=== PATIENT | male | born 1940 | race Caucasian/White ===

== ENCOUNTER 2018-05-26 09:17 | Inpatient (IN) ==
[2018-05-26] MEDS ORDERED: ONDANSETRON 4 MG/2 ML VIAL IV ONE (09:44)
[2018-05-26] MEDS ORDERED: PANTOPRAZOLE 40 MG VIAL IV ONE (09:44)
[2018-05-26] MEDS ORDERED: 0.9 % SODIUM CHLORIDE 1,000 ML IV ONE (09:44)
[2018-05-26] MEDS ORDERED: PANTOPRAZOLE 80 MG in 0.9 % SODIUM CHLORIDE 100 ML IV SCH ×2 (09:45→20:00)
--- NOTE | 2018-05-26 09:48 | Emergency Department Note ---
General Adult HPI - General Chief complaint: Bleeding Other Stated complaint: black stools Time Seen by Provider: 05/26/18 09:32 Source: patient Mode of arrival: ambulatory Limitations: no limitations - History of Present Illness HPI Narrative: 77-year-old male has had some health issues the last several months and comes in for black tarry stools. He is not having much pain perhaps 1-2 out of 10. Denies trouble breathing urinating or other acute illness. He does note that he feels generally weak. He is bleeding a little bit from wound incision site at the umbilicus where he just had a laparoscopic cholecystectomy last week. He is on Eliquis and aspirin Over the last several months he has had his left hip pinning for a femur fracture, a pulmonary embolus that he is had to be on Eliquis for, had to have stenting done in his left lower leg for arterial blockage by Dr. Angulo, and had to have an emergency gallbladder surgery. The gallbladder was done the most recently by Dr. Mancini at [facility]. He is at a rehabilitation facility where he noticed black tarry stools. He went in for wound care of a necrotic large wound to his left lower leg as an outpatient to Dr. Carvalho, precision farming specialist-he told them about his back tarry stools and the oozing from his umbilical wound and they sent him here for further workup and evaluation. I talked to Dr. Carvalho personally and he showed me pictures of the patient's wound site which are now bandaged. He is concerned about a GI bleed and possible sepsis-recommended that he go to the ER for further workup. He is willing to consult on the patient, and do further care on the patient's wounds if the patient is admitted. Incidentally noted Dr. Carvalho also showed me a skin cancer wound in his left buttock area as well. - Related Data Home Medications Medication Instructions Recorded Confirmed simvastatin 10 mg tablet 10 mg PO QPM 08/19/16 10/22/16 aspirin 81 mg tablet,delayed 81 mg PO QDAY 09/18/16 10/22/16 release buspirone 5 mg tablet 5 mg PO TID tab 09/21/16 05/26/18 clonidine HCl 0.1 mg tablet 0.1 mg PO PRN PRN tab 09/21/16 05/26/18 enalapril maleate 10 mg tablet 10 mg PO QDAY tab 09/21/16 10/22/16 Apixaban [Eliquis] 5 mg PO BID 05/26/18 05/26/18 Aspirin [Lite Coat Aspirin] 325 mg PO DAILY 05/26/18 05/26/18 Esomeprazole Magnesium [Nexium 20 mg PO DAILY 05/26/18 05/26/18 24Hr] Furosemide [Lasix] 20 mg PO DAILY 05/26/18 05/26/18 LORazepam [Ativan] 0.5 mg PO PRN PRN 05/26/18 05/26/18 Methocarbamol [Robaxin] 750 mg PO Q6 PRN 05/26/18 05/26/18 Potassium Chloride [K-Tab ER] 8 meq PO DAILY 05/26/18 05/26/18 Allergies Allergy/AdvReac Type Severity Reaction Status Date / Time alprazolam Allergy Unknown Verified 05/26/18 10:30 codeine Allergy Unknown Heartburn Verified 05/26/18 09:21 escitalopram Allergy Unknown Verified 05/26/18 10:30 morphine Allergy Unknown Verified 05/26/18 10:30 propranolol Allergy Unknown Verified 05/26/18 10:30 tramadol Allergy Unknown Verified 05/26/18 10:30 Review of Systems All systems ED: reviewed and negative except as stated. Past Medical History - Past Medical History Attestation: Yes: The following information was validated with the patient. 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 Normal cephalic atraumatic. Conjunctive are clear sclerae nonicteric, pupil equal round reactive to light and accommodation. No nasal discharge or congestion. Oropharynx is pink and moist. Posterior pharynx is clear. Neck is supple without lymphadenopathy thyromegaly or carotid bruit. Heart is regular rate and rhythm no murmurs appreciated. Lungs are clear to auscultation bilaterally without wheezes rales rhonchi or respiratory distress. Abdomen is soft nontender nondistended. He does have several wound sites from the laparoscopic ports which are sutured and Steri-Stripped. All of these look clean dry and intact except for the one inferior to the umbilicus which is a small amount of blood oozing/crusted. He does seem to have reasonable hemostasis here; no active bleeding but certainly with bleeding earlier today. I do not see any purulent discharge excessive erythema or edema; no sign of infection or inflammation. Wound site in his left lower leg is bandaged but is leaking small amount of serous fluid onto the bed. I did do a rectal exam which is Hemoccult positive. He has somewhat weak rectal tone. No hemorrhoids noted. Noted is a large acrochordon on his buttock. This is noninflamed bleeding. He can move around on the bed with minimal assistance but he is globally weak. Alert oriented able to give me a reasonable history Limitations: no limitations Course Vital Signs Temperature 97.5 F 05/26/18 09:18 Pulse Rate 96 H 05/26/18 09:18 Respiratory Rate 20 05/26/18 09:18 Blood Pressure 136/80 05/26/18 09:18 Pulse Oximetry (%) 99 05/26/18 09:18 Temperature 97.5 F 05/26/18 09:18 Pulse Rate 104 H 05/26/18 12:42 Respiratory Rate 31 H 05/26/18 12:42 Blood Pressure 115/60 05/26/18 12:32 Pulse Oximetry (%) 100 05/26/18 12:42 Medical Decision Making - Medical Records Medical records reviewed: Yes I reviewed the patient's medical records. - Lab Data Lab results reviewed: Yes I reviewed the patient's lab results. Result diagrams: 05/26/18 09:54 05/26/18 09:54 Lab Results 05/26/18 05/26/18 05/26/18 Range/Units 09:54 09:54 09:54 WBC 9.2 (4.5-11.0) K/mcL RBC 3.58 L (4.50-5.90) M/mcL Hgb 10.7 L (13.5-16.5) g/dL Hct 33.5 L (41.0-55.0) % POC Hct 33.0 L (41.0-55.0) % MCV 93.5 (80.0-100.0) fL MCH 29.8 (26.0-34.0) pg MCHC 31.9 (31.0-36.0) g/dL RDW 17.4 H (11.5-14.5) % Plt Count 482 H (140-440) K/mcL MPV 7.7 (7.4-10.4) fL Gran % 71.1 (38.0-78.0) % Lymph % (Auto) 15.5 (15.5-49.0) % Pratt % (Auto) 8.6 (1.0-12.0) % Eos % (Auto) 4.1 (0.0-7.0) % Baso % (Auto) 0.7 (0.0-2.0) % Gran # 6.5 (1.8-8.0) K/mcL Lymph # (Auto) 1.4 L (1.5-4.8) K/mcL Pratt # (Auto) 0.8 (0.1-0.9) K/mcL Eos # (Auto) 0.4 (0.0-0.7) K/mcL Baso # (Auto) 0.1 (0.0-0.3) K/mcL POC PT 16.8 H (11.9-14.5) sec PT 16.2 H (11.9-14.5) sec POC INR 1.4 H (0.9-1.2) INR 1.3 H (0.9-1.1) APTT 29 (20-37) sec VBG Lactic Acid (0.5-2.0) mmol/L POC Sodium 142 (133-145) mmol/L Sodium 139 (133-145) mmol/L POC Potassium 3.3 (3.3-5.1) mmol/L Potassium 3.4 (3.3-5.1) mmol/L POC Chloride 106 (96-108) mmol/L Chloride 103 (96-108) mmol/L Carbon Dioxide 25 (22-30) mmol/L POC Total CO2 23 (22-30) mmol/L Anion Gap 11.0 (8-16) POC BUN 12 (8-23) mg/dl BUN 13 (8-23) mg/dl Creatinine 0.9 (0.7-1.2) mg/dl POC Creatinine 0.9 (0.7-1.2) mg/dl GFR Calculation 82 Glucose 118 H (70-105) mg/dL POC Glucose 120 H (70-105) mg/dL Calcium 9.2 (8.6-10.4) mg/dl POC WB Ioniz Calcium 1.19 (1.16-1.32) mmol/L Magnesium 1.8 (1.6-2.5) mg/dL Total Bilirubin 0.5 (0.0-1.0) mg/dL AST 25 (0-37) U/l ALT 58 H (0-40) U/l Alkaline Phosphatase 187 H (39-117) U/L Ammonia (16-60) umol/L Troponin T (0-0.03) ng/ml Total Protein 6.8 (5.9-8.4) gm/dL Albumin 3.0 L (3.2-5.2) gm/dL Globulin 3.8 H (2.2-3.7) gm/dL Albumin/Globulin Ratio 0.8 L (1.0-2.3) Lipase 45 (7-60) U/L Urine Color Urine Appearance Urine pH (5.0-9.0) Ur Specific [place] (1.000-1.035) Urine Protein (NEG) mg/dL Urine Glucose (UA) (NEG) mg/dL Urine Ketones (NEG) mg/dL Urine Occult Blood (<0.03) mg/dL Urine Nitrate (NEG) Urine Bilirubin (NEG) mg/dL Urine Urobilinogen (NEG) mg/dL Ur Leukocyte Esterase (NEG) /uL Ur Culture Indicated? 05/26/18 05/26/18 05/26/18 Range/Units 09:54 10:12 10:12 WBC (4.5-11.0) K/mcL RBC (4.50-5.90) M/mcL Hgb (13.5-16.5) g/dL Hct (41.0-55.0) % POC Hct (41.0-55.0) % MCV (80.0-100.0) fL MCH (26.0-34.0) pg MCHC (31.0-36.0) g/dL RDW (11.5-14.5) % Plt Count (140-440) K/mcL MPV (7.4-10.4) fL Gran % (38.0-78.0) % Lymph % (Auto) (15.5-49.0) % Pratt % (Auto) (1.0-12.0) % Eos % (Auto) (0.0-7.0) % Baso % (Auto) (0.0-2.0) % Gran # (1.8-8.0) K/mcL Lymph # (Auto) (1.5-4.8) K/mcL Pratt # (Auto) (0.1-0.9) K/mcL Eos # (Auto) (0.0-0.7) K/mcL Baso # (Auto) (0.0-0.3) K/mcL POC PT (11.9-14.5) sec PT (11.9-14.5) sec POC INR (0.9-1.2) INR (0.9-1.1) APTT (20-37) sec VBG Lactic Acid 2.2 H (0.5-2.0) mmol/L POC Sodium (133-145) mmol/L Sodium (133-145) mmol/L POC Potassium (3.3-5.1) mmol/L Potassium (3.3-5.1) mmol/L POC Chloride (96-108) mmol/L Chloride (96-108) mmol/L Carbon Dioxide (22-30) mmol/L POC Total CO2 (22-30) mmol/L Anion Gap (8-16) POC BUN (8-23) mg/dl BUN (8-23) mg/dl Creatinine (0.7-1.2) mg/dl POC Creatinine (0.7-1.2) mg/dl GFR Calculation Glucose (70-105) mg/dL POC Glucose (70-105) mg/dL Calcium (8.6-10.4) mg/dl POC WB Ioniz Calcium (1.16-1.32) mmol/L Magnesium (1.6-2.5) mg/dL Total Bilirubin (0.0-1.0) mg/dL AST (0-37) U/l ALT (0-40) U/l Alkaline Phosphatase (39-117) U/L Ammonia 28 (16-60) umol/L Troponin T < 0.01 (0-0.03) ng/ml Total Protein (5.9-8.4) gm/dL Albumin (3.2-5.2) gm/dL Globulin (2.2-3.7) gm/dL Albumin/Globulin Ratio (1.0-2.3) Lipase (7-60) U/L Urine Color Urine Appearance Urine pH (5.0-9.0) Ur Specific [place] (1.000-1.035) Urine Protein (NEG) mg/dL Urine Glucose (UA) (NEG) mg/dL Urine Ketones (NEG) mg/dL Urine Occult Blood (<0.03) mg/dL Urine Nitrate (NEG) Urine Bilirubin (NEG) mg/dL Urine Urobilinogen (NEG) mg/dL Ur Leukocyte Esterase (NEG) /uL Ur Culture Indicated? 05/26/18 Range/Units 11:04 WBC (4.5-11.0) K/mcL RBC (4.50-5.90) M/mcL Hgb (13.5-16.5) g/dL Hct (41.0-55.0) % POC Hct (41.0-55.0) % MCV (80.0-100.0) fL MCH (26.0-34.0) pg MCHC (31.0-36.0) g/dL RDW (11.5-14.5) % Plt Count (140-440) K/mcL MPV (7.4-10.4) fL Gran % (38.0-78.0) % Lymph % (Auto) (15.5-49.0) % Pratt % (Auto) (1.0-12.0) % Eos % (Auto) (0.0-7.0) % Baso % (Auto) (0.0-2.0) % Gran # (1.8-8.0) K/mcL Lymph # (Auto) (1.5-4.8) K/mcL Pratt # (Auto) (0.1-0.9) K/mcL Eos # (Auto) (0.0-0.7) K/mcL Baso # (Auto) (0.0-0.3) K/mcL POC PT (11.9-14.5) sec PT (11.9-14.5) sec POC INR (0.9-1.2) INR (0.9-1.1) APTT (20-37) sec VBG Lactic Acid (0.5-2.0) mmol/L POC Sodium (133-145) mmol/L Sodium (133-145) mmol/L POC Potassium (3.3-5.1) mmol/L Potassium (3.3-5.1) mmol/L POC Chloride (96-108) mmol/L Chloride (96-108) mmol/L Carbon Dioxide (22-30) mmol/L POC Total CO2 (22-30) mmol/L Anion Gap (8-16) POC BUN (8-23) mg/dl BUN (8-23) mg/dl Creatinine (0.7-1.2) mg/dl POC Creatinine (0.7-1.2) mg/dl GFR Calculation Glucose (70-105) mg/dL POC Glucose (70-105) mg/dL Calcium (8.6-10.4) mg/dl POC WB Ioniz Calcium (1.16-1.32) mmol/L Magnesium (1.6-2.5) mg/dL Total Bilirubin (0.0-1.0) mg/dL AST (0-37) U/l ALT (0-40) U/l Alkaline Phosphatase (39-117) U/L Ammonia (16-60) umol/L Troponin T (0-0.03) ng/ml Total Protein (5.9-8.4) gm/dL Albumin (3.2-5.2) gm/dL Globulin (2.2-3.7) gm/dL Albumin/Globulin Ratio (1.0-2.3) Lipase (7-60) U/L Urine Color Straw Urine Appearance Clear Urine pH 5.0 (5.0-9.0) Ur Specific [place] 1.009 (1.000-1.035) Urine Protein Neg (NEG) mg/dL Urine Glucose (UA) Negative (NEG) mg/dL Urine Ketones Neg (NEG) mg/dL Urine Occult Blood Neg (<0.03) mg/dL Urine Nitrate Neg (NEG) Urine Bilirubin Neg (NEG) mg/dL Urine Urobilinogen Neg (NEG) mg/dL Ur Leukocyte Esterase Neg (NEG) /uL Ur Culture Indicated? No - EKG Data EKG #1 EKG attestation: Yes I reviewed and interpreted this EKG. EKG results narrative: EKG showed normal sinus rhythm without evidence of ischemia Disposition Pt seen by [facility]/PA only: No Clinical Impression: Upper GI bleeding, Chronic anticoagulation Leg wound, left Qualifiers: Encounter type: sequela Qualified Code(s): S81.802S - Unspecified open wound, left lower leg, sequela Summary: I initially discussed this case with Dr. Rudy Vargas, director of archives. He felt that the patient did require urgent endoscopy but could not get to it to later on this afternoon. I discussed case with Dr. Hinojosa, our hospitalist, who advised me to get an ultrasound to make sure there was no hematoma in his abdomen. If he did not have a hematoma, that is surgical complication that would require going back to [facility], we could admit him here for an upper GI bleed and get endoscopy done later on today. Because of him being on aspirin and Eliquis there is some certain risk to him continuing to bleed so would needs to be done sooner rather than later. Dr. Carvalho would then conveniently be able to do surgery on him while he was in the hospital for the GI bleed and off the Eliquis. Abdominal ultrasound was ordered-no major hematomas were seen per preliminary report Notified our hospitalist who agreed to come see the patient. we will also notify Dr. Carvalho and Dr. Boyce Disposition: Xfer As Inpt ([facility]) Condition: Fair Referrals: Juancho May MD [Primary Care Provider] -
[2018-05-26 10:39] LABS: Basophils # (Auto) 0.1 K/mcL (0.0-0.3); Basophils % (Auto) 0.7 % (0.0-2.0); Eosinophils # (Auto) 0.4 K/mcL (0.0-0.7); Eosinophils % (Auto) 4.1 % (0.0-7.0); Granulocytes % (Auto) 71.1 % (38.0-78.0); Lymphocytes # (Auto) 1.4 K/mcL (1.5-4.8); Lymphocytes % (Auto) 15.5 % (15.5-49.0); Mean Cell Volume 93.5 fL (80.0-100.0); Mean Corpuscular HGB Conc 31.9 g/dL (31.0-36.0); Monocytes # (Auto) 0.8 K/mcL (0.1-0.9); Monocytes % (Auto) 8.6 % (1.0-12.0); Platelet Count 482 K/mcL (140-440); RBC 3.58 M/mcL (4.50-5.90); Red Cell Distribution Width 17.4 % (11.5-14.5)
[2018-05-26 10:57] LABS: ALT/SGPT 58 U/l (0-40); Albumin/Globulin Ratio 0.8 (1.0-2.3); Alkaline Phosphatase 187 U/L (39-117); Blood Urea Nitrogen 13 mg/dl (8-23); Lipase 45 U/L (7-60)
[2018-05-26 11:31] LABS: Appearance,Urine CLEAR; Bilirubin,Urine NEG (NEG); Color,Urine STRAW; Glucose,Urine (UA) NEGATIVE (NEG); Leukocyte Esterase,Urine NEG /uL (NEG); Protein,Urine NEG (NEG); Specific Gravity,Urine 1.009 (1.000-1.035); Urine Blood NEG mg/dL (<0.03); Urobilinogen,Urine NEG (NEG)
--- NOTE | 2018-05-26 13:41 | Ultrasound Report ---
CLINICAL INFORMATION: Six-day status post cholecystectomy. Blood at the surgical incision COMPARISON: None. FINDINGS: Limited examination of the abdominal wall, near the incision, shows no hematoma or other fluid collection at the incision site. IMPRESSION: Negative Interpreted and Authenticated by: Rudy Rosado 05/26/18
--- NOTE | 2018-05-26 14:11 | Internal Med History&Physical ---
Medical - H&P: [facility] Patient information: Note initiated : 05/26/18 at 2:07 pm Service Date, if different from initiated Date: [] Patient: Rudy Santos 77 y/o M admitted on for black stools. Chief Complaint: [] History of present illness: Mr. Santos is a 77 year old M Who presents to the ED from Dr. sebastian's office after reporting dark tarry stools as well as a wound that Dr. mcgovern was concerned about possible infection. Patient was in the evaluate the ER found to have Hemoccult positive blood stools with a hemoglobin of 10.7 vital signs are stable. He has been on Eliquis and aspirin. Feels a weak. Patient had a complicated history this year. In March he had a left hip repair by Dr. Wing he was subsequently discharged to [facility] prison facility and then presented back to the hospital in early April for ischemia in that left leg and subsequent had a stent placed by Dr. Angulo and then presented back to the hospital for acute cholecystitis in middle april and had a laparoscopic cholecystectomy Dr. Mancini with a subsequent postop complication of pulmonary embolism. He was placed on Eliquis, he was already on aspirin for heart protection, no history of cardiac stents. And then followed up with Dr. mcgovern for lower extremity wound. Patient denies any fevers chills chest pain does report loose stool with dark stool and generalized weakness. Review of Systems: Positives as above. Denies headache/fever/chills/nausea/vomiting/chest or abdominal pain/cough/dyspnea. Many 10 point review of system review negative Medical - H&P: PM Medical history: Medical History High cholesterol (Chronic) Cardiac arrhythmia (Chronic) Herniated disc (Chronic) Prostate carcinoma (Chronic) Liposarcoma of left lower extremity (Chronic) Essential hypertension (Chronic) Lightheaded (Chronic) Dizziness (Chronic) PVCs (premature ventricular contractions) (Chronic) Past Surgical History History of kidney removal (Chronic) History of prostatectomy (Chronic ~1975) History of surgery (Chronic) History of surgery on arm (Chronic ~11/2015) Left hip fracture repair March Left lower extremity stent after the hip fracture repair april Lap scopic cholecystectomy april Family History Sister Arrhythmia Mother Stroke Social History (Last Updated 09/18/16 @ 15:50 by Kristin Quintanilla) Patient quit smoking in the 80s does not drink alcohol ambulate with a cane has been residing at the prison facility since initial hospitalization in March Medical - H&P: Meds Home Medications Medication Instructions Recorded Confirmed Type simvastatin 10 mg tablet 10 mg PO QPM 08/19/16 10/22/16 History aspirin 81 mg tablet,delayed 81 mg PO QDAY 09/18/16 10/22/16 History release buspirone 5 mg tablet 5 mg PO TID tab 09/21/16 05/26/18 History clonidine HCl 0.1 mg tablet 0.1 mg PO PRN PRN tab 09/21/16 05/26/18 History enalapril maleate 10 mg tablet 10 mg PO QDAY tab 09/21/16 10/22/16 History Apixaban [Eliquis] 5 mg PO BID 05/26/18 05/26/18 History Aspirin [Lite Coat Aspirin] 325 mg PO DAILY 05/26/18 05/26/18 History Esomeprazole Magnesium [Nexium 20 mg PO DAILY 05/26/18 05/26/18 History 24Hr] Furosemide [Lasix] 20 mg PO DAILY 05/26/18 05/26/18 History LORazepam [Ativan] 0.5 mg PO PRN PRN 05/26/18 05/26/18 History Methocarbamol [Robaxin] 750 mg PO Q6 PRN 05/26/18 05/26/18 History Potassium Chloride [K-Tab ER] 8 meq PO DAILY 05/26/18 05/26/18 History Allergies Allergy/AdvReac Type Severity Reaction Status Date / Time alprazolam Allergy Unknown Verified 05/26/18 10:30 codeine Allergy Unknown Heartburn Verified 05/26/18 09:21 escitalopram Allergy Unknown Verified 05/26/18 10:30 morphine Allergy Unknown Verified 05/26/18 10:30 propranolol Allergy Unknown Verified 05/26/18 10:30 tramadol Allergy Unknown Verified 05/26/18 10:30 Medical - H&P: Exam - Constitutional Vitals: Temp Pulse Resp BP Pulse Ox 97.5 F 77 14 136/72 100 05/26/18 09:18 05/26/18 12:46 05/26/18 14:05 05/26/18 12:47 05/26/18 12:46 Exam: General: Alert, Awake, No acute Distress Eyes/N/T: EOMI, PEERL, Head/Neck: neck supple, normocephalic atraumatic CV: RRR, No murmurs, normal s1/s2 Pulm: Clear b/l, no wheezing/rhonchi/rales Abd: soft, nontender, +BS x4 Ext: no clubbing/cyanosis, bilateral lower extremity edema 2+, left lower extremity wound and dressing Neuro: Alert, no focal deficits, moves all extremities, CN 2-12 grossly intact, sensations intact Skin: warm/dry Medical - H&P: Reslt - Labs CBC & Chem 7: 05/26/18 09:54 05/26/18 09:54 Labs: Short CBC 05/26/18 Range/Units 09:54 WBC 9.2 (4.5-11.0) K/mcL Hgb 10.7 L (13.5-16.5) g/dL Hct 33.5 L (41.0-55.0) % Plt Count 482 H (140-440) K/mcL BMP 05/26/18 09:54 Sodium 139 Potassium 3.4 Chloride 103 Carbon Dioxide 25 BUN 13 Creatinine 0.9 Glucose 118 H Calcium 9.2 Cardiac Enzymes 05/26/18 Range/Units 09:54 Troponin T < 0.01 (0-0.03) ng/ml Liver Function 05/26/18 Range/Units 09:54 Total Bilirubin 0.5 (0.0-1.0) mg/dL AST 25 (0-37) U/l ALT 58 H (0-40) U/l Alkaline Phosphatase 187 H (39-117) U/L Albumin 3.0 L (3.2-5.2) gm/dL Urine 05/26/18 Range/Units 11:04 Urine Color Straw Urine Appearance Clear Urine pH 5.0 (5.0-9.0) Ur Specific [place] 1.009 (1.000-1.035) Urine Protein Neg (NEG) mg/dL Urine Glucose (UA) Negative (NEG) mg/dL - Impressions Per ER physician the abdominal ultrasound showed no seroma hematoma at the laparoscopic cholecystectomy site of incision Medical - H&P: A/P - Narrative A/P Narrative: A: *GI bleed: *Acute blood loss anemia: *Generalized weakness/deconditioning/debility: Multiple hospitalizations with surgeries and complications in the past several months *Recent left hip ORIF by Dr. Wing, complicated by LLE ischemia s/p stent by Dr. Angulo, and recent lap reginaldo complicated by postoperative PE *HTN: Sounds like he only takes as needed blood pressure medications *Anxiety/depression: *GERD: *CKD II: *Nonhealing left lower extremity wound as well as liposarcoma wound on that leg -?infection * P: -IV fluids -Eliquis and aspirin held -monitor H&H -Dr. Reynolds for GI -Dr. Carvalho for wound; abx - -pt/ot -ppx: SCD right leg/pepcid
--- NOTE | 2018-05-26 14:38 | Internal Medicine Consult Note ---
Medical - CN: HPI - Data of Consult Patient: new to practice Consult date: 05/26/18 Primary Care Provider: Juancho May - Consult Narrative Reason for consult: Melena History of present illness: Mr. Santos is a 77 year old M with a complex medical history who presents for evaluation of melena. 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 Angulo. He was recently discharged from hospital for cholecystectomy by Dr. Mancini, general surgeon, for acute cholecystitis with "necrosis" per daughter who is at bedside. Two days ago, he saw black stool. He is having one BM daily. He has lost 10lbs in the last 5 weeks. He has been on Nexium 40mg twice daily, which controls his longstanding heartburn. He complains of dysphagia to cold liquids only. He denies any additional NSAID use. On admission, hgb 10.7 with normocytic, normochromic anemia. He has been followed by Dr. Carvalho for poor wound healing of LLE. At outpatient follow up today, wound was bleeding and umbilical laprascopy site was oozing, so he was advised to come to ER. Abdominal US in ER showed no evidence of hematoma. CC: - Constitutional Constitutional: Present: weight loss - Gastrointestinal Gastrointestinal: Present: dysphagia. Absent: abdominal pain, hematemesis, hematochezia, loose stools, nausea Medical - CN: PMH Medical history: Liposarcoma of LLE treated with radiation resulting in complications of vascular occlusion and pathologic fracture; pulmonary embolism, PVC, anxiety, hypertension, hyperlipidemia, prostate cancer Surgical history: nephrectomy for benign lesion, prostatectomy, arm surgery, LLE angioplasty with stent, cholecystectomy Pertinent family history: mother-cerebral hemorrhage; father-prostate CA; sisters-CHF and hypertension Social history: Usually lives alone at home in [place], [place] but has been convalescing at SNF since March hip fracture. Denies alcohol use, but used to drink socially. Retired [employer]. Quit smoking in 1979. No recreational drug use. Medical - CN: Meds Home Medications Medication Instructions Recorded Confirmed Type simvastatin 10 mg tablet 10 mg PO QPM 08/19/16 10/22/16 History aspirin 81 mg tablet,delayed 81 mg PO QDAY 09/18/16 10/22/16 History release buspirone 5 mg tablet 5 mg PO TID tab 09/21/16 05/26/18 History clonidine HCl 0.1 mg tablet 0.1 mg PO PRN PRN tab 09/21/16 05/26/18 History enalapril maleate 10 mg tablet 10 mg PO QDAY tab 09/21/16 10/22/16 History Apixaban [Eliquis] 5 mg PO BID 05/26/18 05/26/18 History Aspirin [Lite Coat Aspirin] 325 mg PO DAILY 05/26/18 05/26/18 History Esomeprazole Magnesium [Nexium 20 mg PO DAILY 05/26/18 05/26/18 History 24Hr] Furosemide [Lasix] 20 mg PO DAILY 05/26/18 05/26/18 History LORazepam [Ativan] 0.5 mg PO PRN PRN 05/26/18 05/26/18 History Methocarbamol [Robaxin] 750 mg PO Q6 PRN 05/26/18 05/26/18 History Potassium Chloride [K-Tab ER] 8 meq PO DAILY 05/26/18 05/26/18 History Allergies Allergy/AdvReac Type Severity Reaction Status Date / Time alprazolam Allergy Unknown Verified 05/26/18 10:30 codeine Allergy Unknown Heartburn Verified 05/26/18 09:21 escitalopram Allergy Unknown Verified 05/26/18 10:30 morphine Allergy Unknown Verified 05/26/18 10:30 propranolol Allergy Unknown Verified 05/26/18 10:30 tramadol Allergy Unknown Verified 05/26/18 10:30 Medical - CN: Exam - Constitutional Vitals: Temp Pulse Resp BP Pulse Ox 97.5 F 77 14 136/72 100 05/26/18 09:18 05/26/18 12:46 05/26/18 14:05 05/26/18 12:47 05/26/18 12:46 General appearance: average body habitus, cooperative, no acute distress - Head Head exam: Present: atraumatic, normal inspection, normocephalic - Neck Neck exam: Present: normal inspection, thyromegaly. Absent: lymphadenopathy - Respiratory Respiratory exam: Present: normal respiratory exam, CTAB - Cardiovascular Cardiovascular exam: Present: normal rate and rhythm. Absent: systolic murmur Additional comments: ectopic beat occasionally - GI/Abdominal GI/Abdominal exam: Present: normal bowel sounds, soft, tenderness. Absent: mass, organomegaly Additional comments: mild RUQ tenderness at laprascopy incision. Old blood at umbilical site, but no active bleeding. - Psychiatric Psychiatric exam: Present: normal affect, normal mood - Skin Skin exam: Present: dry, warm Additional comments: Dressing to LLE intact Medical - CN: Result - Labs CBC & Chem 7: 05/26/18 09:54 05/26/18 09:54 Labs: Short CBC 05/26/18 Range/Units 09:54 WBC 9.2 (4.5-11.0) K/mcL Hgb 10.7 L (13.5-16.5) g/dL Hct 33.5 L (41.0-55.0) % Plt Count 482 H (140-440) K/mcL BMP 05/26/18 09:54 Sodium 139 Potassium 3.4 Chloride 103 Carbon Dioxide 25 BUN 13 Creatinine 0.9 Glucose 118 H Calcium 9.2 Cardiac Enzymes 05/26/18 Range/Units 09:54 Troponin T < 0.01 (0-0.03) ng/ml Liver Function 05/26/18 Range/Units 09:54 Total Bilirubin 0.5 (0.0-1.0) mg/dL AST 25 (0-37) U/l ALT 58 H (0-40) U/l Alkaline Phosphatase 187 H (39-117) U/L Albumin 3.0 L (3.2-5.2) gm/dL Urine 05/26/18 Range/Units 11:04 Urine Color Straw Urine Appearance Clear Urine pH 5.0 (5.0-9.0) Ur Specific [place] 1.009 (1.000-1.035) Urine Protein Neg (NEG) mg/dL Urine Glucose (UA) Negative (NEG) mg/dL Medical - CN: A/P (1) Melena Status: Acute Assessment and plan: Discussed case with Dr. Reis. Will arrange for EGD. Differential diagnosis includes ASA induced ulcer, hiatal hernia with Prakash's ulcer, bleeding gastric or duodenal polyp, esophagitis, angiodysplasia/Dieulafoy's, etc, among others. If EGD is unremarkable, will proceed with capsule enteroscopy as an outpatient. Outpatient follow up recommended upon discharge w/ DIANNE Shaver [phone] [place] [address].
[2018-05-26] MEDS ORDERED: KETAMINE HCL 50 MG/ML ML IV PRN (15:19)
[2018-05-26] MEDS ORDERED: MIDAZOLAM 2 MG/2 ML VIAL ONE (15:23)
[2018-05-26] MEDS ORDERED: PROPOFOL 20 ML IV ONE (15:23)
[2018-05-26] MEDS ORDERED: PROPOFOL 200 MG/20 ML VIAL IV SCH (15:30)
[2018-05-26] MEDS ORDERED: MIDAZOLAM 2 MG/2 ML VIAL IV SCH (15:30)
[2018-05-26] MEDS ORDERED: cloNIDine HCL 0.1 MG TABLET PO PRN (16:26)
[2018-05-26] MEDS ORDERED: LORazepam 0.5 MG TABLET PO PRN (16:26)
[2018-05-26] MEDS ORDERED: ACETAMINOPHEN 325 MG TABLET PO PRN (16:26)
[2018-05-26] MEDS ORDERED: ONDANSETRON 4 MG/2 ML VIAL IV PRN (16:26)
[2018-05-26] MEDS ORDERED: 0.9 % SODIUM CHLORIDE 1,000 ML IV SCH (16:26)
[2018-05-26] MEDS ORDERED: METHOCARBAMOL 750 MG TABLET PO PRN (16:26)
--- NOTE | 2018-05-26 16:41 | General Surgery Consult Note ---
History of Present Illness Patient information: Note initiated : 05/26/18 at 4:28 pm Service Date, if different from initiated Date: [] Patient: Rudy Santos 77 y/o M admitted on 05/26/18 for black stools. Chief Complaint: [] Consult date: 05/26/18 Requesting physician: Pawel Hinojosa (Wound Care. Left leg and Hip area) History of present illness: I know Mr. Santos from previous encounter at Wound Care center and subsequent consult / follow up at [facility] in [place], [place] over w/e. I saw him at wound center today. He had NEW symptoms of bleeding from surgical s ite below umbilicus and h/o passing bloody stools. He has a background of being on anticoagulants. He underwent ORIF of Left hip / femur. He has an ulcerated biopsy proven skin cancer, adjacent to surgical scar, LEFT hip greater trochanter area. Later he had vascular intervention by Dr. WOODARD for Left LE stent insertion. Subsequently, he developed skin necrosis of left lateral leg and ended up with open wound, over 15 x 5 x 2 CM full thickness. There is exposed muscle and necrotic adherent adipose tissue along wound edges. Subsequently he underwent Laparoscopic Cholecystectomy by Dr. Rm Mancini at [facility] over one week ago. Patient has a foot drop LEFT leg. He moves about in a wheel chair and can transfer from chair to bed with assistance. Medications and Allergies Home Medications Medication Instructions Recorded Confirmed Type buspirone 5 mg tablet 5 mg PO TID tab 09/21/16 05/26/18 History clonidine HCl 0.1 mg tablet 0.1 mg PO PRN PRN tab 09/21/16 05/26/18 History Esomeprazole Magnesium [Nexium 20 mg PO DAILY 05/26/18 05/26/18 History 24Hr] Furosemide [Lasix] 20 mg PO DAILY 05/26/18 05/26/18 History LORazepam [Ativan] 0.5 mg PO PRN PRN 05/26/18 05/26/18 History Methocarbamol [Robaxin] 750 mg PO Q6 PRN 05/26/18 05/26/18 History Potassium Chloride [K-Tab ER] 8 meq PO DAILY 05/26/18 05/26/18 History Allergies Allergy/AdvReac Type Severity Reaction Status Date / Time escitalopram Allergy Unknown Verified 02/28/19 16:50 propranolol Allergy Unknown Verified 05/26/18 16:49 alprazolam AdvReac Mild Dizziness Verified 05/26/18 16:51 codeine AdvReac Mild Heartburn Verified 05/26/18 16:38 morphine AdvReac Mild Vomiting Verified 05/26/18 16:38 tramadol AdvReac Mild Shakiness Verified 05/26/18 16:49 Exam Temp Pulse Resp BP Pulse Ox 97.5 F 85 20 92/53 100 05/26/18 09:18 05/26/18 15:38 05/26/18 15:38 05/26/18 15:38 05/26/18 15:38 - General physical appearance well developed, well nourished, no distress - Eyes PERRL, normal ocular movement - ENT normal pinna, normal nares, normal mucosa, no congestion - Head Head exam IM: Present: atraumatic, normal inspection, normocephalic - Neck no masses, no bruits, trachea midline, no venous distension - Cardiovascular Cardiovascular exam IM: Present: normal rate and rhythm - Respiratory normal respiratory effort, clear to auscultation - Abdomen Abdomen: Present: soft, non tender, bowel sounds, surgical scars (Bruising along umbilicus scar site) - Integumentary Present: other (Open skin lesion Left lateral hip greater trochanter area 3 x 2 x 1 CM and Open skin and sub cutaneous tissue lateral Left leg as mentioned above.) - Neurologic Present: other (GRIFFITH, LEFT foot drop) - Musculoskeletal Present: other (Wheel chair for ambulation . Undergoing physical therapy. ) - Psychiatric Present: oriented to time, oriented to person, oriented to place, speech is normal, memory intact Results - Labs 05/27/18 04:21 05/27/18 04:21 Abnormal lab results 05/26/18 05/26/18 05/26/18 Range/Units 09:54 09:54 09:54 RBC 3.58 L (4.50-5.90) M/mcL Hgb 10.7 L (13.5-16.5) g/dL Hct 33.5 L (41.0-55.0) % POC Hct 33.0 L (41.0-55.0) % RDW 17.4 H (11.5-14.5) % Plt Count 482 H (140-440) K/mcL Lymph # (Auto) 1.4 L (1.5-4.8) K/mcL POC PT 16.8 H (11.9-14.5) sec PT 16.2 H (11.9-14.5) sec POC INR 1.4 H (0.9-1.2) INR 1.3 H (0.9-1.1) VBG Lactic Acid (0.5-2.0) mmol/L Glucose 118 H (70-105) mg/dL POC Glucose 120 H (70-105) mg/dL ALT 58 H (0-40) U/l Alkaline Phosphatase 187 H (39-117) U/L Albumin 3.0 L (3.2-5.2) gm/dL Globulin 3.8 H (2.2-3.7) gm/dL Albumin/Globulin Ratio 0.8 L (1.0-2.3) 05/26/18 Range/Units 10:12 RBC (4.50-5.90) M/mcL Hgb (13.5-16.5) g/dL Hct (41.0-55.0) % POC Hct (41.0-55.0) % RDW (11.5-14.5) % Plt Count (140-440) K/mcL Lymph # (Auto) (1.5-4.8) K/mcL POC PT (11.9-14.5) sec PT (11.9-14.5) sec POC INR (0.9-1.2) INR (0.9-1.1) VBG Lactic Acid 2.2 H (0.5-2.0) mmol/L Glucose (70-105) mg/dL POC Glucose (70-105) mg/dL ALT (0-40) U/l Alkaline Phosphatase (39-117) U/L Albumin (3.2-5.2) gm/dL Globulin (2.2-3.7) gm/dL Albumin/Globulin Ratio (1.0-2.3) Diabetes panel 05/26/18 Range/Units 09:54 Sodium 139 (133-145) mmol/L Potassium 3.4 (3.3-5.1) mmol/L Chloride 103 (96-108) mmol/L Carbon Dioxide 25 (22-30) mmol/L BUN 13 (8-23) mg/dl Creatinine 0.9 (0.7-1.2) mg/dl Glucose 118 H (70-105) mg/dL Calcium 9.2 (8.6-10.4) mg/dl AST 25 (0-37) U/l ALT 58 H (0-40) U/l Alkaline Phosphatase 187 H (39-117) U/L Total Protein 6.8 (5.9-8.4) gm/dL Albumin 3.0 L (3.2-5.2) gm/dL Calcium panel 05/26/18 Range/Units 09:54 Calcium 9.2 (8.6-10.4) mg/dl Albumin 3.0 L (3.2-5.2) gm/dL Pituitary panel 05/26/18 Range/Units 09:54 Sodium 139 (133-145) mmol/L Potassium 3.4 (3.3-5.1) mmol/L Chloride 103 (96-108) mmol/L Carbon Dioxide 25 (22-30) mmol/L BUN 13 (8-23) mg/dl Creatinine 0.9 (0.7-1.2) mg/dl Glucose 118 H (70-105) mg/dL Calcium 9.2 (8.6-10.4) mg/dl Adrenal panel 05/26/18 Range/Units 09:54 Sodium 139 (133-145) mmol/L Potassium 3.4 (3.3-5.1) mmol/L Chloride 103 (96-108) mmol/L Carbon Dioxide 25 (22-30) mmol/L BUN 13 (8-23) mg/dl Creatinine 0.9 (0.7-1.2) mg/dl Glucose 118 H (70-105) mg/dL Calcium 9.2 (8.6-10.4) mg/dl Total Bilirubin 0.5 (0.0-1.0) mg/dL AST 25 (0-37) U/l ALT 58 H (0-40) U/l Alkaline Phosphatase 187 H (39-117) U/L Total Protein 6.8 (5.9-8.4) gm/dL Albumin 3.0 L (3.2-5.2) gm/dL All other labs normal. Assessment and Plan (1) Ulcer of left thigh Status: Chronic Priority: Low Comment: Biopsy proven skin cancer around Left greater trochanter (2) Upper GI bleeding Status: Acute Priority: Low (3) Leg wound, left Status: Chronic Priority: Medium Qualifiers: Encounter type: sequela (4) Melena Status: Acute Priority: Low (5) Prostate carcinoma Status: Chronic Priority: Low (6) Chronic anticoagulation Status: Chronic Priority: Low Comment: Patient with PT of over 16. His oral anticoagulation will be held and he will be bridged with Lovenox in anticipation of surgery on Wednesday06/01/2018 for debridement of LEFT leg wound and excision of Left hip skin cancer wound, with frozen section confirmation of clear margins and split thickness skin graft.
[2018-05-26] MEDS: busPIRone 5 MG TABLET PO SCH ×2 (17:33→21:31)
[2018-05-26] MEDS ORDERED: APIXABAN 5 MG TABLET PO ONE (21:00)
[2018-05-26] MEDS: 0.9 % SODIUM CHLORIDE 10 ML SYRINGE IV SCH (21:33)
[2018-05-27] MEDS: 0.9 % SODIUM CHLORIDE 10 ML SYRINGE IV SCH ×5 (03:49→22:29)
[2018-05-27 06:43] LABS: ALT/SGPT 41 U/l (0-40); Albumin 2.2 gm/dL (3.2-5.2); Albumin/Globulin Ratio 0.7 (1.0-2.3); Alkaline Phosphatase 146 U/L (39-117); Bilirubin,Direct < 0.2 mg/dL (0.0-0.3); Blood Urea Nitrogen 11 mg/dl (8-23); Gamma Glutamyl Transpeptidase 161 U/L (8-61); Uric Acid 5.7 mg/dL (2.5-8.0)
--- NOTE | 2018-05-27 06:55 | Internal Med Progress Note ---
Medical - PN: Subj Patient information: Note initiated : 05/27/18 at 6:51 am Service Date, if different from initiated Date: [] Patient: Rudy Santos 77 y/o M admitted on 05/26/18 for black stools. Chief Complaint: [] Interval history: Mr. Santos is a 77 year old M Who presents to the ED from Dr. sebastian's office after reporting dark tarry stools as well as a wound that Dr. mcgovern was concerned about possible infection. Patient was in the evaluate the ER found to have Hemoccult positive blood stools with a hemoglobin of 10.7 vital signs are stable. He has been on Eliquis and aspirin. Feels a weak. Patient had a complicated history this year. In March he had a left hip repair by Dr. Wing he was subsequently discharged to [facility] shelter facility and then presented back to the hospital in early April for ischemia in that left leg and subsequent had a stent placed by Dr. Angulo and then presented back to the hospital for acute cholecystitis in middle of April and had a laparoscopic cholecystectomy Dr. Mancini with a subsequent postop complication of pulmonary embolism. He was placed on Eliquis, he was already on aspirin for heart protection, no history of cardiac stents. And then followed up with Dr. mcgovern for lower extremity wound. Patient denies any fevers chills chest pain does report loose stool with dark stool and generalized weakness. 3/ Uneventful night. No complaints slept okay. He had a little bit of cough that went away after he sat up. No bowel movement overnight. respond to evaluating wound today. Review of Systems: denies headache/fever/chills/nausea/vomiting/chest or abdominal pain/cough/dyspnea/diarrhea. Otherwise see above. - Constitutional Vitals: Vital Signs Temp Pulse Resp BP Pulse Ox 98.1 F 71 20 127/76 95 05/27/18 04:00 05/27/18 04:00 05/27/18 04:00 05/27/18 04:00 05/27/18 04:00 Period Temp Pulse Resp BP Sys/Garcia Pulse Ox Last 24 Hr 97.5 F-98.6 F 71-104 13-31 89-151/53-83 95-100 Intake and Output 05/26/18 05/27/18 05/27/18 21:59 05:59 13:59 Intake Total 0 Output Total 500 Balance -500 Weight 95.935 kg Intake & Output: Intake & Output 05/26/18 05/27/18 05/27/18 21:59 05:59 13:59 Intake Total 0 Output Total 500 Balance -500 Weight 95.935 kg Intake: Oral 0 Output: Void Amount 500 Other: Urine Color Bright Yellow Urine Odor Normal # Voids 1 Exam: General: Alert, Awake, No acute Distress Eyes/N/T: EOMI, , Head/Neck: neck supple, CV: RRR, No murmurs, Pulm: Clear b/l, no wheezing/rhonchi/rales Abd: soft, nontender, +BS x4 Ext: no clubbing/cyanosis, bilateral lower extremity edema 1+, left lower extremity wound and dressing Neuro: Alert, no focal deficits, moves all extremities, Skin: warm/dry Medical - PN: Obj Da - Labs CBC & Chem 7: 05/27/18 04:21 05/27/18 04:21 Labs: Abnormal Lab Results 05/27/18 05/26/18 05/26/18 04:21 10:12 09:54 RBC Hgb Hct POC Hct 33.0 L RDW Plt Count Lymph # (Auto) POC PT PT POC INR INR VBG Lactic Acid 2.2 H Chloride 110 H Glucose 118 H POC Glucose 120 H Calcium 8.5 L Phosphorus 2.6 L GGT 161 H ALT 41 H 58 H Alkaline Phosphatase 146 H 187 H Total Protein 5.5 L Albumin 2.2 L 3.0 L Globulin 3.8 H Albumin/Globulin Ratio 0.7 L 0.8 L 05/26/18 05/26/18 09:54 09:54 RBC 3.58 L Hgb 10.7 L Hct 33.5 L POC Hct RDW 17.4 H Plt Count 482 H Lymph # (Auto) 1.4 L POC PT 16.8 H PT 16.2 H POC INR 1.4 H INR 1.3 H VBG Lactic Acid Chloride Glucose POC Glucose Calcium Phosphorus GGT ALT Alkaline Phosphatase Total Protein Albumin Globulin Albumin/Globulin Ratio Meds: Medications Acetaminophen (Tylenol) 650 mg PO Q6HP PRN PRN Reason: PAIN/FEVER > 101 Apixaban (Eliquis) 5 mg PO BID RAAD Buspirone HCl (Buspar) 5 mg PO TID [facility] Last Admin: 05/26/18 21:31 Dose: 5 mg Documented by: Lorazepam (Ativan) 0.5 mg PO PRN PRN PRN Reason: Anxiety Methocarbamol (Robaxin) 750 mg PO Q6HP PRN PRN Reason: Muscle Spasm Ondansetron HCl (Zofran) 4 mg IV Q6HP PRN PRN Reason: Nausea And Vomiting Potassium Chloride (Kdur) 10 meq PO [facility] Sodium Chloride (Saline Flush) 10 ml IV Q8 [facility] Last Admin: 05/27/18 05:50 Dose: 10 ml Documented by: Medical - PN: A/P - Time Spent With Patient Total time spent is greater than 50% in coordination of care (as documented) at patient's floor/unit and/or counseling patient: - Narrative A/P Narrative: A: *GI bleed: erosions found on EGD, no active bleeding -no BM o/n *Acute blood loss anemia: *Generalized weakness/deconditioning/debility: Multiple hospitalizations with surgeries and complications in the past several months *Recent left hip ORIF by Dr. Wing, complicated by LLE ischemia s/p stent by Dr. Angulo, and recent lap reginaldo complicated by postoperative PE *HTN: Sounds like he only takes as needed blood pressure medications *Anxiety/depression: *GERD: *CKD II: *Nonhealing left lower extremity wound as well as liposarcoma wound on that leg - * P: -start diet -d/w Eliquis with GI, ok to restart. Will stop aspirin while pt is on eliquis -monitor H&H -Dr. Reynolds for GI -ppi gtt stopped to PO -Dr. Carvalho for wound; abx, likely to OR for debridment - -pt/ot -ppx: starting back eliquis/PPI Medical - PN: Qual - VTE Deep Vein Thrombosis/Pulmonary Embolism Present on Admission: Yes
[2018-05-27 07:00] LABS: Basophils # (Auto) 0 K/mcL (0.0-0.3); Basophils % (Auto) 0.4 % (0.0-2.0); Eosinophils # (Auto) 0.4 K/mcL (0.0-0.7); Eosinophils % (Auto) 5.9 % (0.0-7.0); Granulocytes % (Auto) 67.1 % (38.0-78.0); Lymphocytes # (Auto) 1.2 K/mcL (1.5-4.8); Lymphocytes % (Auto) 17.3 % (15.5-49.0); Mean Cell Volume 95.3 fL (80.0-100.0); Mean Corpuscular HGB Conc 32.4 g/dL (31.0-36.0); Monocytes # (Auto) 0.6 K/mcL (0.1-0.9); Monocytes % (Auto) 9.3 % (1.0-12.0); Platelet Count 386 K/mcL (140-440); Red Cell Distribution Width 16.8 % (11.5-14.5)
[2018-05-27] MEDS: PANTOPRAZOLE 40 MG PACKET PO SCH ×2 (08:01→17:50)
[2018-05-27] MEDS: busPIRone 5 MG TABLET PO SCH ×3 (08:28→22:20)
[2018-05-27] MEDS: POTASSIUM CHLORIDE 10 MEQ TABLET PO SCH (08:28)
[2018-05-27] MEDS ORDERED: APIXABAN 5 MG TABLET PO SCH (09:00)
--- NOTE | 2018-05-27 17:55 | General Surgery Progress Note ---
Subjective Narrative: Note initiated : 05/27/18 at 5:52 pm Service Date, if different from initiated Date: [] Patient: Rudy Santos 77 y/o M admitted on 05/26/18 for black stools. Chief Complaint: [] I saw patient along with Sharon RN, Inpatient wound care nurse and later during the day again with patient's daughter Kalyani. GI input noted. Spoke with Hospitalist physicians Dr. Hinojosa and Dr. Francis about wound care / surgery plan for 06/01/2018 Objective Temp Pulse Resp BP Pulse Ox 98.1 F 77 16 120/81 97 05/27/18 15:00 05/27/18 11:13 05/27/18 15:00 05/27/18 15:00 05/27/18 15:00 AVSS. No changes DUY. Stable wounds Left thigh / hip area and Left lateral leg. Bruising around umbilical region is stable. - Additional Data Intake & Output - Last 24 hours: Intake & Output 05/25/18 05/26/18 05/27/18 05/28/18 05:59 05:59 05:59 05:59 Intake Total 1000 300 Output Total 650 325 Balance 350 -25 Weight 211 lb 8 oz 211 lb 8 oz - Labs 05/27/18 04:21 05/27/18 04:21 Diabetes panel 05/27/18 Range/Units 04:21 Sodium 141 (133-145) mmol/L Potassium 3.8 (3.3-5.1) mmol/L Chloride 110 H (96-108) mmol/L Carbon Dioxide 23 (22-30) mmol/L BUN 11 (8-23) mg/dl Creatinine 0.9 (0.7-1.2) mg/dl Glucose 93 (70-105) mg/dL Calcium 8.5 L (8.6-10.4) mg/dl AST 20 (0-37) U/l ALT 41 H (0-40) U/l Alkaline Phosphatase 146 H (39-117) U/L Total Protein 5.5 L (5.9-8.4) gm/dL Albumin 2.2 L (3.2-5.2) gm/dL Triglycerides 71 (<150) mg/dl Calcium panel 05/27/18 Range/Units 04:21 Calcium 8.5 L (8.6-10.4) mg/dl Phosphorus 2.6 L (2.7-4.5) mg/dL Albumin 2.2 L (3.2-5.2) gm/dL Pituitary panel 05/27/18 Range/Units 04:21 Sodium 141 (133-145) mmol/L Potassium 3.8 (3.3-5.1) mmol/L Chloride 110 H (96-108) mmol/L Carbon Dioxide 23 (22-30) mmol/L BUN 11 (8-23) mg/dl Creatinine 0.9 (0.7-1.2) mg/dl Glucose 93 (70-105) mg/dL Calcium 8.5 L (8.6-10.4) mg/dl Adrenal panel 05/27/18 Range/Units 04:21 Sodium 141 (133-145) mmol/L Potassium 3.8 (3.3-5.1) mmol/L Chloride 110 H (96-108) mmol/L Carbon Dioxide 23 (22-30) mmol/L BUN 11 (8-23) mg/dl Creatinine 0.9 (0.7-1.2) mg/dl Glucose 93 (70-105) mg/dL Calcium 8.5 L (8.6-10.4) mg/dl Total Bilirubin 0.4 (0.0-1.0) mg/dL AST 20 (0-37) U/l ALT 41 H (0-40) U/l Alkaline Phosphatase 146 H (39-117) U/L Total Protein 5.5 L (5.9-8.4) gm/dL Albumin 2.2 L (3.2-5.2) gm/dL Assessment and Plan (1) Ulcer of left thigh Problem details: 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 His oral anticoagulation will be held and he will be bridged with Lovenox in anticipation of surgery on Wednesday06/01/2018 for debridement of LEFT leg wound and excision of Left hip skin cancer wound, with frozen section confirmation of clear margins and split thickness skin graft. Status: Chronic Current Visit: Yes - Narrative A/P Narrative: Assessment: Open ulcerated skin cancer LEFT lateral thigh / Hip area OPen wounds LEFT lateral leg area. Coagulopathy due to oral anticoagulants. Plan: Surgery scheduled for 06/01/2018 morning. See pre operative orders. Recommend HOLD ORAL anticoagulant from Wednesday05/29/2018 AND Start Lovenox 1 mg / kg q 12 hrly . ( Bridge anticoagulation ) LAST DOSE of Lovenox on Wednesday05/31/2018 evening. HOLD LOVENOX on day of surgery 06/01/2018 See Pre operative CONSENT orders for surgery procedure on 06/01/2018. NPO after midnight of 05/31/2018. For OR on 06/01/2018 AM. HIBICLENS scrub / wash from head to toe on morning of 06/01/2018 - Time Spent With Patient Total time spent is greater than 50% in coordination of care (as documented) at patient's floor/unit and/or counseling patient: Greater than 35 minutes
[2018-05-27] MEDS ORDERED: ENOXAPARIN 80 MG/0.8 ML SYRINGE SQ SCH (21:00)
[2018-05-27] MEDS: APIXABAN 5 MG TABLET PO SCH (22:20)
[2018-05-28 05:34] LABS: Mean Cell Volume 93.1 fL (80.0-100.0); Mean Corpuscular HGB Conc 32.6 g/dL (31.0-36.0); Platelet Count 401 K/mcL (140-440); Red Cell Distribution Width 16.8 % (11.5-14.5)
[2018-05-28 06:08] LABS: Prealbumin 15.8 mg/dl (20-40)
[2018-05-28 06:10] LABS: ALT/SGPT 36 U/l (0-40); Albumin 2.5 gm/dL (3.2-5.2); Albumin/Globulin Ratio 0.8 (1.0-2.3); Alkaline Phosphatase 143 U/L (39-117); Bilirubin,Direct < 0.2 mg/dL (0.0-0.3); Blood Urea Nitrogen 14 mg/dl (8-23); Gamma Glutamyl Transpeptidase 152 U/L (8-61); Uric Acid 5.8 mg/dL (2.5-8.0)
[2018-05-28 06:17] LABS: Estimated Average Glucose(eAG) 94 mg/dL; Hemoglobin A1C 4.9 % HGB (4.0-6.0)
[2018-05-28 06:30] LABS: Anisocytosis 1+ (NONE SEEN); Eosinophils % (Manual) 6 % (0-7); Lymphocytes % 14 % (15-49); Monocytes % (Manual) 10 % (1-12); Platelet Estimate NORMAL (NORMAL); RBC Morphology ABNORM (NORMAL); Segmented Neutrophils % 70 % (38-78)
[2018-05-28] MEDS: busPIRone 5 MG TABLET PO SCH (09:15)
[2018-05-28] MEDS: PANTOPRAZOLE 40 MG PACKET PO SCH (09:15)
[2018-05-28] MEDS: POTASSIUM CHLORIDE 10 MEQ TABLET PO SCH (09:15)
[2018-05-28] MEDS: 0.9 % SODIUM CHLORIDE 10 ML SYRINGE IV SCH (09:15)
[2018-05-28] MEDS: APIXABAN 5 MG TABLET PO SCH (09:16)
--- NOTE | 2018-05-28 11:22 | Discharge Summary ---
Medical - DS: Prov Patient information: Note initiated : 05/28/18 at 11:16 am Service Date, if different from initiated Date: [] Patient: Rudy Santos 77 y/o M admitted on 05/26/18 for black stools. Chief Complaint: [] Date of admission: 05/26/18 15:44 Discharge date: 05/28/18 Primary care physician: Juancho May Consults: 05/26/18 13:21 Consult to Physician [CONS] Stat Comment: Consulting Provider: Pawel Hinojosa Reason For Exam: Physician to Consult 05/26/18 13:23 Consult to Physician [CONS] Stat Comment: Consulting Provider: Jeremías Carvalho Reason For Exam: Physician to Consult Consult to Physician [CONS] Stat Comment: Consulting Provider: Rudy Vargas Reason For Exam: Physician to Consult Medical - DS: Meds - Discharge Medications Prescriptions: Enoxaparin [Lovenox] 80 mg SQ BID #10 syringe Oxandrolone [Oxandrin] 5 mg PO BID #14 tab Pantoprazole [Protonix] 40 mg PO BIDAC #60 packet Active and Home Medications: Home Medications buspirone 5 mg tablet 5 mg PO TID tab 09/21/16 [History Confirmed 05/26/18 Last Taken Unknown] clonidine HCl 0.1 mg tablet 0.1 mg PO PRN PRN tab 09/21/16 [History Confirmed 05/26/18 Last Taken Unknown] Esomeprazole Magnesium [Nexium 24Hr] 20 mg PO DAILY 05/26/18 [History Confirmed 05/26/18 Last Taken Unknown] Furosemide [Lasix] 20 mg PO DAILY 05/26/18 [History Confirmed 05/26/18 Last Taken Unknown] LORazepam [Ativan] 0.5 mg PO PRN PRN 05/26/18 [History Confirmed 05/26/18 Last Taken Unknown] Methocarbamol [Robaxin] 750 mg PO Q6 PRN 05/26/18 [History Confirmed 05/26/18 Last Taken Unknown] Potassium Chloride [K-Tab ER] 8 meq PO DAILY 05/26/18 [History Confirmed 05/26/18 Last Taken Unknown] Apixaban [Eliquis] 5 mg PO BID tab 05/28/18 [Rx Last Taken Unknown] Enoxaparin [Lovenox] 80 mg SQ BID #10 syringe 05/28/18 [Rx Last Taken Unknown] Oxandrolone [Oxandrin] 5 mg PO BID #14 tab 05/28/18 [Rx Last Taken Unknown] Medical - DS: Hosp Hospital course: Discharge diagnosis *GI bleed: erosions found on EGD, no active bleeding- gastroenterology recommends holding aspirin and fentanyl requests. Continue oral PPI. *Acute blood loss anemia: *Recent pulmonary embolism-on anticoagulation. Will bridge to Lovenox starting Wednesday in anticipation of surgery on Wednesday *Generalized weakness/deconditioning/debility: Multiple hospitalizations with surgeries and complications in the past several months *Recent left hip ORIF by Dr. Wing, complicated by LLE ischemia s/p stent by Dr. 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 pineda wound physician. Brief hospital course Mr. Santos is a 77 year old M Who presents to the ED from Dr. sebastian's office after reporting dark tarry stools as well as a wound that Dr. mcgovern was concerned about possible infection. Patient was in the evaluate the ER found to have Hemoccult positive blood stools with a hemoglobin of 10.7 vital signs are stable. He has been on Eliquis and aspirin. Feels a weak. Patient had a complicated history this year. In March he had a left hip repair by Dr. Wing he was subsequently discharged to [facility] [place] intermediate facility and then presented back to the hospital in early [facility] for ischemia in that left leg and subsequent had a stent placed by Dr. Angulo and then presented back to the hospital for acute cholecystitis in middle of April and had a laparoscopic cholecystectomy Dr. Mancini with a subsequent postop complication of pulmonary embolism. He was placed on Eliquis, he was already on aspirin for heart protection, no history of cardiac stents. And then followed up with Dr. mcgovern for lower extremity wound. Patient denies any fevers chills chest pain does report loose stool with dark stool and generalized weakness. 3/ Uneventful night. No complaints slept okay. He had a little bit of cough that went away after he sat up. No bowel movement overnight. respond to evaluating wound today. 3/2- patient discharging today to care facility and will return on Wednesday for lower extremity wounds surgery. Advised to discontinue oral anticoagulant on Wednesday and start Lovenox as a bridge. Lovenox will be held Wednesday night in anticipation of surgery Wednesday morning. Post surgical anticoagulation initiation will be as per surgeon's recommendation. Patient is being discharged in stable state and discharge and recommendations as below Discharge diagnosis: . Complications: Discharge diagnosis *GI bleed: erosions found on EGD, no active bleeding- gastroenterology recommends holding aspirin and fentanyl requests. Continue oral PPI. *Acute blood loss anemia: *Recent pulmonary embolism-on anticoagulation. Will bridge to Lovenox starting Wednesday in anticipation of surgery on Wednesday *Generalized weakness/deconditioning/debility: Multiple hospitalizations with surgeries and complications in the past several months *Recent left hip ORIF by Dr. Wing, complicated by LLE ischemia s/p stent by Dr. 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 pineda wound physician. Brief hospital course Mr. Santos is a 77 year old M Who presents to the ED from Dr. sebastian's office after reporting dark tarry stools as well as a wound that Dr. mcgovern was concerned about possible infection. Patient was in the evaluate the ER found to have Hemoccult positive blood stools with a hemoglobin of 10.7 vital signs are stable. He has been on Eliquis and aspirin. Feels a weak. Patient had a complicated history this year. In March he had a left hip repair by Dr. Wing he was subsequently discharged to [facility] and then presented back to the hospital in early April for ischemia in that left leg and subsequent had a stent placed by Dr. Angulo and then presented back to the hospital for acute cholecystitis in middle of April and had a laparoscopic cholecystectomy Dr. Mancini with a subsequent postop complication of pulmonary embolism. He was placed on Eliquis, he was already on aspirin for heart protection, no history of cardiac stents. And then followed up with Dr. mcgovern for lower extremity wound. Patient denies any fevers chills chest pain does report loose stool with dark stool and generalized weakness. 05/27 Uneventful night. No complaints slept okay. He had a little bit of cough that went away after he sat up. No bowel movement overnight. respond to evaluating wound today. 05/28- patient discharging today to care facility and will return on Wednesday for lower extremity wounds surgery. Advised to discontinue oral anticoagulant on Wednesday and start Lovenox as a bridge. Lovenox will be held Wednesday in anticipation of surgery Wednesday. Post surgical anticoagulation initiation will be as per surgeon's recommendation. Patient is being discharged in stable state and discharge and recommendations as below - Time Spent with Patient Total time spent providing and/or coordinating discharge services: Greater than 30 minutes Medical - DS: Exam - Constitutional Vitals: Vital Signs Temp Pulse Resp BP Pulse Ox 05/28/18 06:52 98.2 F 16 133/80 96 05/28/18 04:00 98.4 F 78 18 125/77 95 05/27/18 23:19 98.2 F 80 22 115/71 95 05/27/18 19:52 98.1 F 82 116/71 94 05/27/18 15:00 98.1 F 16 120/81 97 Intake and Output 05/27/18 05/28/18 05/28/18 21:59 05:59 13:59 Intake Total 180 Output Total 125 775 Balance 55 -775 Intake: Oral 180 Output: Void Amount 125 775 Other: Urine Color Bright Yellow # Voids 1 Weight 209 lb 8 oz Medical - DS: Data Labs on day of discharge: Labs from last 24 hours 05/28/18 05/28/18 04:28 04:28 WBC 6.9 RBC 3.00 L Hgb 9.1 L Hct 27.9 L MCV 93.1 MCH 30.3 MCHC 32.6 RDW 16.8 H Plt Count 401 MPV 7.5 Total Counted 100 Seg Neutrophils % 70 Band Neutrophils % Not Reportable Lymphocytes % 14 L Monocytes % (Manual) 10 Eosinophils % (Manual) 6 Platelet Estimate Normal RBC Morphology Abnorm A Anisocytosis 1+ A Sodium 140 Potassium 3.6 Chloride 106 Carbon Dioxide 27 Anion Gap 7.0 L BUN 14 Creatinine 1.0 GFR Calculation 72 Glucose 104 Hemoglobin A1c 4.9 Estim Average Glucose 94 Uric Acid 5.8 Calcium 8.7 Phosphorus 2.7 Magnesium 1.8 Total Bilirubin 0.4 Direct Bilirubin < 0.2 GGT 152 H AST 18 ALT 36 Alkaline Phosphatase 143 H Lactate Dehydrogenase 196 Total Protein 5.7 L Albumin 2.5 L Globulin 3.2 Albumin/Globulin Ratio 0.8 L Prealbumin 15.8 L Triglycerides 75 TSH 2.11 Medical - DS: A/P - Patient/Caregiver Discharge Instructions Activity: as per physical therapy, increase activity as tolerated Diet: Regular Diet Additional Instructions: Hold up oral anticoagulation starting 05/30, start Lovenox bridge starting 05/30. Hold at bedtime Lovenox dose / in anticipation for surgery 3/6 AM Continue wound care/PT OT as advised Hold aspirin and continue twice a day PPI as per GI recommendations Follow-up primary care physician in one week Return to ER if worsening bleeding, lightheadedness dizziness chest pain noted Prescriptions: Enoxaparin [Lovenox] 80 mg SQ BID #10 syringe Oxandrolone [Oxandrin] 5 mg PO BID #14 tab Pantoprazole [Protonix] 40 mg PO BIDAC #60 packet - Follow up Plan Follow up with: Juancho May MD [Primary Care Provider] - Disposition: Xfer SNF Prognosis: Fair Rehab Potential: Fair I certify that the patient requires SNF services: Yes Overall status at discharge: patient is progressing back to baseline Medical - DS: Qual - VTE Deep Vein Thrombosis/Pulmonary Embolism Present on Admission: Yes
--- NOTE | 2018-05-28 11:24 | General Surgery Progress Note ---
Subjective Narrative: Note initiated : 05/28/18 at 11:19 am Service Date, if different from initiated Date: [] Patient: Rudy Santos 77 y/o M admitted on 05/26/18 for black stools. Chief Complaint: [] Patient had an uneventful night. Labs reviewed. Prealbumin 15. TSH is normal Objective Temp Pulse Resp BP Pulse Ox 98.2 F 78 16 133/80 96 05/28/18 06:52 05/28/18 04:00 05/28/18 06:52 05/28/18 06:52 05/28/18 06:52 AVSS. No changes DUY. Dressings Left leg and hip CDI. Labs TSH Normal Prealbumin is low 15. - Additional Data Intake & Output - Last 24 hours: Intake & Output 05/26/18 05/27/18 05/28/18 05/29/18 05:59 05:59 05:59 05:59 Intake Total 1000 300 Output Total 650 1225 Balance 350 -925 Weight 211 lb 8 oz 209 lb 8 oz - Labs 05/28/18 04:28 05/28/18 04:28 Diabetes panel 05/28/18 Range/Units 04:28 Sodium 140 (133-145) mmol/L Potassium 3.6 (3.3-5.1) mmol/L Chloride 106 (96-108) mmol/L Carbon Dioxide 27 (22-30) mmol/L BUN 14 (8-23) mg/dl Creatinine 1.0 (0.7-1.2) mg/dl Glucose 104 (70-105) mg/dL Hemoglobin A1c 4.9 (4.0-6.0) % HGB Calcium 8.7 (8.6-10.4) mg/dl AST 18 (0-37) U/l ALT 36 (0-40) U/l Alkaline Phosphatase 143 H (39-117) U/L Total Protein 5.7 L (5.9-8.4) gm/dL Albumin 2.5 L (3.2-5.2) gm/dL Triglycerides 75 (<150) mg/dl Thyroid panel 05/28/18 Range/Units 04:28 TSH 2.11 (0.27-5.01) uIU/ml Calcium panel 05/28/18 Range/Units 04:28 Calcium 8.7 (8.6-10.4) mg/dl Phosphorus 2.7 (2.7-4.5) mg/dL Albumin 2.5 L (3.2-5.2) gm/dL Pituitary panel 05/28/18 Range/Units 04:28 Sodium 140 (133-145) mmol/L Potassium 3.6 (3.3-5.1) mmol/L Chloride 106 (96-108) mmol/L Carbon Dioxide 27 (22-30) mmol/L BUN 14 (8-23) mg/dl Creatinine 1.0 (0.7-1.2) mg/dl Glucose 104 (70-105) mg/dL Calcium 8.7 (8.6-10.4) mg/dl TSH 2.11 (0.27-5.01) uIU/ml Adrenal panel 05/28/18 Range/Units 04:28 Sodium 140 (133-145) mmol/L Potassium 3.6 (3.3-5.1) mmol/L Chloride 106 (96-108) mmol/L Carbon Dioxide 27 (22-30) mmol/L BUN 14 (8-23) mg/dl Creatinine 1.0 (0.7-1.2) mg/dl Glucose 104 (70-105) mg/dL Calcium 8.7 (8.6-10.4) mg/dl Total Bilirubin 0.4 (0.0-1.0) mg/dL AST 18 (0-37) U/l ALT 36 (0-40) U/l Alkaline Phosphatase 143 H (39-117) U/L Total Protein 5.7 L (5.9-8.4) gm/dL Albumin 2.5 L (3.2-5.2) gm/dL Assessment and Plan (1) Ulcer of left thigh Problem details: 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 His oral anticoagulation will be held and he will be bridged with Lovenox in anticipation of surgery on Wednesday06/01/2018 for debridement of LEFT leg wound and excision of Left hip skin cancer wound, with frozen section confirmation of clear margins and split thickness s kin graft. Status: Chronic Current Visit: Yes - Narrative A/P Narrative: Assessment: Hypoproteinemia in setting of poor wound healing,. No other interval changes. Plan: Started on Oxandrin 5 mg PO BID OK to be discharged to [facility] in [place] FOR OR on 06/01/2018 as scheduled. - Time Spent With Patient Total time spent is greater than 50% in coordination of care (as documented) at patient's floor/unit and/or counseling patient: 15 - 24 minutes
[2018-05-28] MEDS ORDERED: OXANDROLONE 2.5 MG TABLET PO SCH (21:00)
--- NOTE | 2018-05-30 12:08 | EGD Procedure Note ---
EGD Procedure Notes - Procedure Information Patient information: Note initiated : 05/30/18 at 12:05 pm Service Date: 05/26/18 Patient: Rudy Santos 77 y/o M admitted on 05/26/18 for black stools. Pre-op diagnosis general: Melena. Post-Op Diagnosis general: UGI bleed secondary to aspirin and Eliquis. Procedure: Esophogogastroduodenoscopy Procedure Narrative: The procedure, alternatives and risks were discussed with the patient and the patient's questions were answered. With endoscopist-administered intravenous sedation, the Olympus video endoscope was introduced into the esophagus. The esophagus, stomach, and duodenum were examined sequentially. There is no esophagitis nor hiatal hernia. Erosions were seen in the duodenal bulb. These were not bleeding at present. No definite bleeding site was identifi ed. A small bowel diverticulum was seen in the second portion of the duodenum. The gastric mucosa, antrum, pyloric ring and duodenum were otherwise normal. The scope was withdrawn. Assessment: UGI bleed secondary to aspirin and Eliquis. D/C aspirin. Continue Eliquis. Repeat EGD if bleeding recurs.
[2018-06-01] MEDS ORDERED: GENTAMICIN SULFATE 80 MG, CLINDAMYCIN 600 MG, BACITRACIN 50,000 UNIT in 0.9 % SODIUM CH... IRR SCH (07:00)
== END 2018-05-28 13:00 | DRG 377 ==
LOC: ED 09:17 → SUR 15:26 → MEDSUR 15:44
PROVIDERS: ADMIT Internal Medicine; ATTEND Internal Medicine